=== PATIENT | female | born 1945 ===

== ENCOUNTER 2019-07-20 07:11 | Outpatient (CLI) | payer OTHER | END 2019-07-20 07:28 | disposition home or self-care (01) | LOC: NUCLEAR 07:11 | DX: I25.10 Atherosclerotic heart disease of native coronary artery without angina pectoris (principal); I44.7 Left bundle-branch block, unspecified | CPT/HCPCS: 78452; 93017; 93306; A9500; J0153 ==

== ENCOUNTER 2019-12-06 08:04 | Outpatient (CLI) | payer OTHER | END 2019-12-06 08:17 | disposition home or self-care (01) | LOC: NUCLEAR 08:04 | DX: R91.1 Solitary pulmonary nodule (principal); R91.8 Other nonspecific abnormal finding of lung field | CPT/HCPCS: 78815; A9552 ==